=== PATIENT | female | born 1960 | race African-American/Black ===

== ENCOUNTER 2016-04-19 16:14 | Emergency (ER) | payer MEDICARE, OTHER ==
[~2016-04-19] VITALS: Wt 62.9 kg
[2016-04-19] MEDS ORDERED: KETOROLAC 30 MG INJ IM STA (17:30)
[2016-04-19] MEDS ORDERED: DIAZEPAM 5 MG TAB PO ONE (17:30)
--- NOTE | 2016-04-19 17:34 | ERD ---
ER Documentation Chief Complaint Date/Time DATE: 04/19/16 TIME: 17:32 Chief Complaint BACK PAIN FROM FALL 10 DAYS AGO , NO NEURO DEFICIT HPI This is a 55-year-old female presenting to the emergency department complaining of thoracic back pain and lumbar back pain status post ground-level fall that occurred 10 days ago. Patient rates the pain 8 out of 10, increases with movement. Patient denies any neuro deficits, saddle anesthesia, bladder or bowel incontinence. Patient tried Tylenol this morning without any relief. She states that she is working on getting an appointment to see her primary care physician. ROS All systems reviewed and are negative except as per history of present illness. Medications Home Meds Active Scripts Naproxen* (Naprosyn*) 500 Mg Tablet, 500 MG PO BID Y for PAIN AND/OR INFLAMMATION, #30 TAB Prov:QUINCY LOYOLA PA-C 04/19/16 PMhx/Soc Hx Alcohol Use: No Hx Substance Use: No Hx Tobacco Use: No Physical Exam Vitals Vital Signs Date Time Temp Pulse Resp B/P Pulse Ox O2 Delivery O2 Flow Rate FiO2 04/19/16 16:19 98.8 87 20 144/81 98 Physical Exam GENERAL: WD/WN, in no apparent distress, non-toxic appearing HENT: NC/AT EYES: Conjunctiva normal NECK: Supple PULM: Normal labored breathing CV: Good capillary refill GI: Non-distended, no guarding BACK: no deformities noted, normal spinal curvature, TTP on lumbar region, Tender on thoracic and lumbar spine midline, no deformities patient is ambulating and walking around without any distress EXT: No clubbing, cyanosis, or edema NEURO: Moves on all fours, sensation intact, normal gait SKIN: intact PSYCH: Normal mood Results 24 hrs Current Medications Medications (Trade) Dose Ordered Sig/Gilmer Route PRN Reason Start Time Stop Time Status Last Admin Dose Admin Ketorolac Tromethamine (Toradol) 30 mg ONCE STAT IM 04/19/16 17:30 04/19/16 17:32 DC 04/19/16 17:41 Diazepam (Valium) 10 mg ONCE ONCE PO 04/19/16 17:30 04/19/16 17:32 DC 04/19/16 17:41 Procedures/MDM This is a 55-year-old female presenting to the emergency department complaining of thoracic back pain and lumbar back pain status post ground-level fall that occurred 10 days ago. This is likely due to strain and contusion. Patient was neurovascular intact, she is ambulating. Low suspicion for spinal abscess, vertebral fracture, cauda equina syndrome, spinal stenosis due to physical examination. X-ray of the thoracic region and lumbar region was done and was unremarkable. Patient was given Toradol and Valium in the ED with some relief. Patient is neurovascularly intact. Prescriptions naproxen was given to patient, discussed to return to the ED if not improving as expected or follow-up with a primary care physician. Patient understood and agreed with this plan. Departure Diagnosis: Primary Impression: Thoracic myofascial strain Encounter type: initial encounter Qualified Code: S29.019A - Thoracic myofascial strain, initial encounter Additional Impression: Back pain Back pain location: back pain in unspecified location Chronicity: acute Back pain laterality: bilateral Qualified Code: M54.9 - Acute bilateral back pain, unspecified back location Condition: Stable QUINCY LOYOLA PA-C Apr 19, 2016 17:33
--- NOTE | 2016-04-19 18:29 | RADRPT ---
PROCEDURE: Thoracic Spine. CLINICAL INDICATION: Ground-level fall, pain. TECHNIQUE: AP and lateral views of the thoracic spine. COMPARISON: None available FINDINGS: The superior thoracic spine is obscured by the shoulders on the lateral view. The thoracic kyphosis is preserved without spondylolisthesis. The vertebral body and disk heights are maintained. No acu te fracture or subluxation is seen. The visualized lungs are clear. IMPRESSION: 1. No acute fracture or subluxation of the thoracic spine. RPTAT: HTAR .Kiran Monzon MD, Date Time Electronically viewed and signed by .Kiran Monzon MD, on 04/19/2016 18:28 .R/
--- NOTE | 2016-04-19 18:33 | RADRPT ---
PROCEDURE: XR Lumbar Spine. CLINICAL INDICATION: Pain status post ground-level fall. TECHNIQUE: Lumbar spine x-rays, 3 views. COMPARISON: None. FINDINGS: Bony mineralization appears normal. Vertebral body height and alignment are normal. A transitional vertebra is present at the lumbosacral junction. Intervertebral disk heights are within normal [place] its. Paravertebral soft tissues are unremarkable. IMPRESSION: No evidence of acute osseous abnormality of the lumbar spine. RPTAT: HLST .Jennifer Peterson MD, MD Date Time Electronically viewed and signed by .Jennifer Peterson MD, MD on 04/19/2016 18:33 .T/
[2016-04-19] MEDS ORDERED: NAPR-260 PO (18:38)
[2016-04-19 19:08] VITALS: BP 131/87; PULSE 73; RESP 16; TEMP 98
== END 2016-04-19 19:24 | disposition home or self-care (01) ==
LOC: FTE 16:14
DX: S29.012A Strain of muscle and tendon of back wall of thorax, initial encounter (principal); S39.92XA Unspecified injury of lower back, initial encounter; I10 Essential (primary) hypertension; E03.9 Hypothyroidism, unspecified; W18.39XA Other fall on same level, initial encounter; Y92.9 Unspecified place or not applicable
CPT/HCPCS: 72072; 72100; 96372; 99284; J1885